=== PATIENT | female | born 1950 | race Asian ===

== ENCOUNTER 2022-11-02 12:22 | Emergency (ER) | payer OTHER ==
[~2022-11-02] VITALS: Ht 160 cm; Wt 77.1 kg
[2022-11-02 12:24] VITALS: BP 132/60
--- NOTE | 2022-11-02 12:27 | NUR ---
PATIENT BIBA TO BED 3.
--- NOTE | 2022-11-02 12:30 | NUR ---
72/F BIBA FROM HOME C/O DIZZINESS AND SWEATING ONSET TODAY WHILE COOKING. DENIES FALL OR LOC. AMBULATORY, GCS 15, DENIES CP OR SOB. VSS, ON RELOCATION MANAGER, IV ESTABLISHED BY EMS STRUCTURAL STEEL FITTER ON RIGHT HAND WITH 20G. PT WAS SEEN AT AN ER 1 MONTH AGO FOR SAME S/SX. PMH: DM
[2022-11-02 14:02] LABS: BASOPHILS % (AUTO) 0.5 % (0.0-2.0); EOSINOPHILS # (AUTO) 0.2 K/uL (0-0.4); EOSINOPHILS % (AUTO) 3.2 % (0.0-4.0); HEMATOCRIT 33.5 % (36-48); HEMOGLOBIN 11.2 g/dL (12.0-16.0); LYMPHOCYTES # (AUTO) 1.9 K/uL (2.5-16.5); LYMPHOCYTES % (AUTO) 27.5 % (20.5-51.1); MEAN CORPUSCULAR HEMOGLOBIN 26 pg (27-31); MEAN CORPUSCULAR HGB CONC 33 g/dL (33-37); MEAN CORPUSCULAR VOLUME 77.7 fL (80-94); MONOCYTES # (AUTO) 0.5 K/uL (0.8-1.0); MONOCYTES % (AUTO) 7.2 % (1.7-9.3); NEUTROPHILS # (AUTO) 4.3 K/uL (1.8-7.7); NEUTROPHILS % (AUTO) 61.6 % (42.2-75.2); PLATELET COUNT (AUTO) 217 K/uL (140-450); RED BLOOD CELL COUNT(AUTO) 4.31 MIL/uL (4.20-5.40)
[2022-11-02 14:09] LABS: ANION GAP 12.1 (8-16); CARBON DIOXIDE 27.7 mmol/L (21-32); CHLORIDE 96 mmol/L (98-107); GLUCOSE 203 mg/dL (74-106); POTASSIUM 3.8 mmol/L (3.5-5.1); SODIUM SERUM 132 mmol/L (136-145); UREA NITROGEN, BLOOD 22 mg/dL (7-18)
[2022-11-02 14:33] LABS: APPEARANCE,URINE CLEAR (CLEAR); BILIRUBIN,URINE NEGATIVE (NEGATIVE); BLOOD, URINE NEGATIVE (NEGATIVE); COLOR,URINE YELLOW (YELLOW); LEUKOCYTE ESTERASE ,URINE NEGATIVE (NEGATIVE); NITRITE, URINE NEGATIVE (NEGATIVE); UGLUCOSE NEGATIVE (NEGATIVE)
[2022-11-02] MEDS ORDERED: NACL 0.9% 1,000 ML IV ONE (14:35)
[2022-11-02] MEDS ORDERED: ACETAMINOPHEN EXTRA STRENGTH 500 MG TAB PO ONE (15:15)
[2022-11-02] MEDS ORDERED: MECLIZINE 25 MG TAB PO ONE (15:15)
--- NOTE | 2022-11-02 15:41 | NUR ---
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
[2022-11-02] MEDS ORDERED: ACET-10509 PO (16:08)
[2022-11-02] MEDS ORDERED: MECL-303 PO (16:08)
[2022-11-02 16:15] VITALS: BP 136/68
== END 2022-11-02 16:15 | disposition home or self-care (01) ==
LOC: MED 12:22
DX: R55 Syncope and collapse (principal); I10 Essential (primary) hypertension; E11.9 Type 2 diabetes mellitus without complications; Z79.4 Long term (current) use of insulin; Z79.899 Other long term (current) drug therapy
CPT/HCPCS: 36415; 70450; 80048; 81003; 84484; 85025; 85379; 93005; 96360; 99285; J8597; J7030

== ENCOUNTER 2022-11-29 12:25 | Outpatient (CLI) | payer OTHER ==
[~2022-11-29 12:25] MED LIST: ACET-10509 PO; MECL-303 PO
== END 2022-11-29 17:33 | disposition home or self-care (01) ==
LOC: MUS 12:25
PROVIDERS: ATTEND Student in an Organized Health Care Education/Training Program
DX: R80.9 Proteinuria, unspecified (principal)
CPT/HCPCS: 76770; Q0092

== ENCOUNTER 2022-12-05 16:52 | Emergency (ER) | payer OTHER ==
[~2022-12-05] VITALS: Ht 154.9 cm; Wt 68.5 kg
[2022-12-05 17:11] VITALS: BP 160/68
--- NOTE | 2022-12-05 17:22 | NUR ---
PT WALKED TO ROOM 11 WITH FAMILY.
[2022-12-05] MEDS ORDERED: HYDROcodone/APAP 5/325 MG 1 TAB TAB PO ONE (17:35)
[2022-12-05] MEDS ORDERED: METH-1691 PO (17:39)
[2022-12-05] MEDS ORDERED: LID5T TP (17:39)
[2022-12-05] MEDS ORDERED: ACET-10509 PO (17:39)
--- NOTE | 2022-12-05 18:10 | NUR ---
ASSUMED PATIENT CARE, NURSING ASSESSMENT COMPLETED.
[2022-12-05 18:37] VITALS: BP 145/59
--- NOTE | 2022-12-05 18:38 | NUR ---
Patient discharged with v/s stable. Written and verbal after care instructions given and explained. Patient alert, oriented and verbalized understanding of instructions. Ambulatory with steady gait. All questions addressed prior to discharge. ID band removed. Patient advised to follow up with PMD. Rx of TYLENOL, LIDOCAINE, METHOCARBAMOL given. Patient educated on indication of medication including possible reaction and side effects. Opportunity to ask questions provided and answered.
== END 2022-12-05 18:37 | disposition home or self-care (01) ==
LOC: MED 16:52
DX: S43.401A Unspecified sprain of right shoulder joint, initial encounter (principal); E11.9 Type 2 diabetes mellitus without complications; I10 Essential (primary) hypertension; Z79.899 Other long term (current) drug therapy; X58.XXXA Exposure to other specified factors, initial encounter; Y92.89 Other specified places as the place of occurrence of the external cause; Y93.89 Activity, other specified; Y99.8 Other external cause status
CPT/HCPCS: 73030; 73080; 99284; Q0092